=== PATIENT | male | born 1950 | race Caucasian/White ===

== ENCOUNTER → 2017-03-05 | Day surgery (SDC) | payer OTHER ==
[~2017-03-05] MED LIST: ACETYLCYSTEINE 20% 6,000 MG/30 ML ORAL SOLN VIAL ONE; ATOR20TA15 PO; FISHCAP4 PO; PROPOFOL 500 MG/50 ML BTL IV ONE; STERILE WATER FOR INJECTION 20 ML VIAL ONE
--- NOTE | 2017-03-05 14:27 | GIPROC ---
[facility] [address] [facility], [address] EGD PROCEDURE REPORT EXAM DATE: 03/05/2017 PATIENT NAME: Alen Vaca MR #: [id number] BIRTHDATE: 1950 ATTENDING: Scott Santiago MD ORDER #: [id number] HOME HEALTH RN: Bethel Lilly RN STATUS: outpatient INDICATIONS: The patient is a 66 yr old male here for an EGD due to follow up of Santa's esophagus PROCEDURE PERFORMED: EGD w/ ablation MEDICATIONS: None and Per Anesthesia. TOPICAL ANESTHETIC: CONSENT: The patient understands the risks and benefits of the procedure and understands that these risks include, but are not limited to: sedation, allergic reaction, infection, perforation and/or bleeding. Alternative means of evaluation and treatment include, among others: physical exam, x-rays, and/or surgical intervention. The patient elects to proceed with this endoscopic procedure. medical equipment was checked for proper function. Hand hygiene and appropriate measures for infection prevention was taken. After the risks, benefits and alternatives of the procedure were thoroughly explained, Informed consent was verified, confirmed and timeout was successfully executed by the treatment team. The patient was anesthetized with topical anesthesia and the EG-[id number] ([id number]) endoscope was introduced through the mouth and advanced to the second portion of the duodenum. Retroflexed views revealed no abnormalities The gastroscope was then slowly withdrawn and removed. ESOPHAGUS: There was short segment Santa's esophagus found in the lower third of the esophagus. The length of circumferential Santa's was 0cm (Hendricks C0) and the length of Maximal extent of Santa's was 1cm (Hendricks M1). There was no nodular mucosa noted in the Santa's segment. RFA procedure: Given the above findings, the decision was made to treat the Santa's esophagus with endoscopic ablation, using the Halo 90 cap device. The Santa's esophagus tissue was irrigated with Mucomyst (1%) mixed with water. RF ablation of the tongues and of all Santa's tissue was performed. Each area was treated x 2, the ablation zone was cleaned of coagulative debris with the ablation device, irrigation and suction using the endoscope. The area was then treated x 2 again until a chamois colored area was observed at the site of treatment. A total of 5 ablations were performed. The endoscopy was otherwise normal. ADVERSE EVENTS: There were no complications. IMPRESSIONS: 1. There was short segment Santa's esophagus found in the lower third of the esophagus; RF ablation of the tongues and of all Santa's tissue was performed 2. Normal endoscopy otherwise 3. Retroflexed views revealed no abnormalities RECOMMENDATIONS: 1. Continue PPI 2. Follow-up: GI clinic 4 week(s) PATIENT CONDITION: stable DISPOSITION: Home REPEAT EXAM: Return 3 months EGD Scott Santiago MD eSigned: Scott Santiago MD 03/05/2017 2:26 PM cc: Christiano Meraz PATIENT NAME: Alen Vaca MR#: [id number]
== END | disposition home or self-care (01) ==
LOC: ESDC 10:52
PROVIDERS: ATTEND Internal Medicine Gastroenterology
DX: K22.70 Barrett's esophagus without dysplasia (principal)

== ENCOUNTER 2017-12-17 19:04 | Inpatient (IN) ==
[2017-12-17] MEDS ORDERED: HYDROmorphone PF Inj 2 MG/ML Vial IV.PUSH ONE (21:25)
[2017-12-17] MEDS ORDERED: Sod Chloride 0.9% Inj 1,000 ML IV.SIG SCH (21:30)
--- NOTE | 2017-12-17 22:01 | ED ---
HPI General Chief complaint: Pain: Chronic Stated complaint: doc sent/CA pt Time Seen by Provider: 12/17/17 20:53 Source: patient and family Mode of arrival: ambulatory Limitations: no limitations History of Present Illness HPI narrative: Patient is a 66-year-old male that presents for the evaluation of left sided neck pain that started last night. The patient is currently being treated with chemotherapy and radiation for neck cancer. The patient states that he has had neck pain throughout the course of his treatment but the pain that started last night is worse than his usual pain. He currently rates his pain as a 7/10 on a pain scale. He states that the pain is located on the left side of his neck but is radiating to the left side of his head as well. The patient states that he was recently prescribed both Oxycodone and Morphine to help control his pain. He notes that neither of these medications have been able to alleviate his pain. He does not note anything specific that aggregates his pain. The patient denies chest pain, shortness of breath, dizziness, fever, chills, or night sweats. Patient has been experiencing nausea and vomiting that also started yesterday. Related Data Home Medications Medication Instructions Recorded Confirmed amoxicillin 500 mg PO Q6HR 11/28/17 11/28/17 atorvastatin 20 mg PO DAILY 11/28/17 11/28/17 oxycodone 5 mg PO Q4-6H PRN 11/28/17 11/28/17 pantoprazole 40 mg PO DAILY 11/28/17 11/28/17 Allergies Allergy/AdvReac Type Severity Reaction Status Date / Time No Known Allergies Allergy Verified 12/17/17 21:48 Review of Systems ROS: all other systems reviewed are negative [facility] Medical History Medical History Port-A-Cath in place (Acute) Cancer of neck (Acute) Cirrhosis (Acute) Esophagitis (Acute) Hyperlipemia (Acute) Normal colonoscopy (Acute) Surgical History Surgical History Hx of eye surgery (Acute) Social History Social History Substance History: No History of Abuse Second Hand Smoke Exposure: No Smoking Status: Former smoker How Often Do You Have a Drink Containing Alcohol: Never Recent Travel in [facility] within the Last 8 Weeks: No Recent Out of Country Travel within the Last 8 Weeks: No Immunization History Tetanus Immunization: Unsure Hx Influenza Vaccine This Season: Yes Exam Narrative Exam Narrative: GENERAL: Well appearing SKIN: Focused skin assessment warm/dry. HEAD: Atraumatic. Normocephalic. EYES: Pupils equal and round. No scleral icterus. No injection or drainage. ENT: No nasal bleeding or discharge. Mucous membranes pink and moist. Noted masses on the left side of the neck. NECK: Trachea midline. No JVD. CARDIOVASCULAR: Regular rate and rhythm. No murmur appreciated. RESPIRATORY: No accessory muscle use. Clear to auscultation. Breath sounds equal bilaterally. GASTROINTESTINAL: Abdomen soft, non-tender, nondistended. Hepatic and splenic margins not palpable. MUSCULOSKELETAL: No obvious deformities. No clubbing. No cyanosis. No edema. NEUROLOGICAL: Awake and alert. No obvious cranial nerve deficits. Motor grossly within normal limits. Normal speech. PSYCHIATRIC: Appropriate mood and affect; insight and judgment normal. Course Initial Documented Vital Signs Temperature 98.6 F 12/17/17 19:29 Pulse Rate 64 12/17/17 19:29 Respiratory Rate 18 12/17/17 19:29 Blood Pressure 106/58 L 12/17/17 19:29 Pulse Oximetry 95 12/17/17 19:29 Last Documented Vital Signs Temperature 98.6 F 12/17/17 19:29 Pulse Rate 60 12/17/17 21:09 Respiratory Rate 17 12/17/17 21:09 Blood Pressure 161/65 H 12/17/17 21:09 Pulse Oximetry 97 12/17/17 21:09 Medical Decision Making [facility] Narrative Medical decision making narrative: 66-year-old male the presents to the ED for evaluation of cancer pain. Patient was properly examined and was found to have signs and symptoms consistent with what appears to be cancer pain. Patient already taken morphine and oxycodone with no relief. Patient also throwing up and not eating anything for the past 2 days. Labs order. Patient start IV fluids and pain medications. Labs showed no sign of acute disease. Patient was reassessed and still in some discomfort. Case was discussed my attending Dr. Orellana who recommends admission. Case discussed with Dr. Guillaume who agrees to up to admission. Family agrees with plan. Medical Screen Exam Complete: Yes Emergency Medical Condition: Yes Differential Diagnosis Differential Diagnosis: Chronic pain versus cancer pain versus intractable pain versus dehydration Medical Records Medical records reviewed: Yes I reviewed the patient's medical records. Lab Data Lab results reviewed: Yes I reviewed the patient's lab results. Result diagrams: 12/17/17 21:15 18 21:15 Lab Results 12/17/17 12/17/17 Range/Units 21:15 21:15 WBC 6.0 (4.0-11.0) th/mm3 RBC 3.80 L (4.50-5.90) mil/mm3 Hgb 12.2 L (13.0-17.0) gm/dL Hct 34.7 L (39.0-51.0) % MCV 91.3 (80.0-100.0) fL MCH 32.1 (27.0-34.0) pg MCHC 35.1 (32.0-36.0) % RDW 13.1 (11.6-17.2) % Plt Count 242 (150-450) th/mm3 MPV 8.5 (7.0-11.0) fL Neut % (Auto) 74.3 H (16.0-70.0) % Lymph % (Auto) 14.2 (9.0-44.0) % [place] % (Auto) 9.3 H (0.0-8.0) % Eos % (Auto) 1.8 (0.0-4.0) % Baso % (Auto) 0.4 (0.0-2.0) % Neut # (Auto) 4.4 (1.8-7.7) th/mm3 Lymph # (Auto) 0.8 L (1.0-4.8) th/mm3 [place] # (Auto) 0.6 (0.0-0.9) th/mm3 Eos # (Auto) 0.1 (0.0-0.4) th/mm3 Baso # (Auto) 0.0 (0.0-0.2) th/mm3 WBC Differential . Differential Comment Auto diff final Sodium 138 (136-145) meq/L Potassium 4.2 (3.5-5.1) meq/L Chloride 100 (98-107) meq/L Carbon Dioxide 29.6 (21.0-32.0) meq/L Anion Gap 8 (5-15) meq/L BUN 15 (7-18) mg/dL Creatinine 0.73 (0.60-1.30) mg/dL Estimated GFR Greater than 89 (>89) mL/min Random Glucose 94 (74-106) mg/dL Calcium 9.2 (8.5-10.1) mg/dL Total Bilirubin 0.6 (0.2-1.0) mg/dL AST 22 (15-37) U/L ALT 23 (12-78) U/L Alkaline Phosphatase 84 (45-117) U/L Total Protein 7.1 (6.4-8.2) g/dL Albumin 3.8 (3.4-5.0) g/dL Discharge Plan Discharge Disposition Patient Disposition: 30 Still Patient Discharge Details Diagnosis: Intractable pain, Cancer of neck Physicians Team ED Provider: Mary Orellana ED Midlevel Provider: Joni Contreras Primary Care Provider: Iliana White Rxs /Orders / Referrals /Forms Prescriptions: No Action atorvastatin 20 mg Tablet 20 mg PO DAILY RF: 0 amoxicillin 500 mg Tablet 500 mg PO Q6HR RF: 0 oxycodone 5 mg Capsule 5 mg PO Q4-6H PRN (Reason: Pain) RF: 0 pantoprazole [address] For Susp In Packet 40 mg PO DAILY RF: 0 Discharge Interventions Interventions: Vital Signs Last Done: 12/17/17 21:09 Status ED Status: With Doctor
[2017-12-17 22:40] LABS: Albumin 3.8 g/dL (3.4-5.0); Anion Gap 8 meq/L (5-15); Aspartate Aminotransferase 22 U/L (15-37); Blood Urea Nitrogen 15 mg/dL (7-18); Calcium 9.2 mg/dL (8.5-10.1); Carbon Dioxide 29.6 meq/L (21.0-32.0); Chloride 100 meq/L (98-107); Glomerular Filtration Rate Greater Than 89 mL/min (>89); Glucose,Random 94 mg/dL (74-106); Potassium 4.2 meq/L (3.5-5.1); Sodium 138 meq/L (136-145)
[2017-12-17 22:41] LABS: Alanine Aminotransferase 23 U/L (12-78)
[2017-12-17 22:43] LABS: Alkaline Phosphatase 84 U/L (45-117); Baso % (Auto) 0.4 % (0.0-2.0); Eos # (Auto) 0.1 th/mm3 (0.0-0.4); Eos % (Auto) 1.8 % (0.0-4.0); Hematocrit 34.7 % (39.0-51.0); Hemoglobin 12.2 gm/dL (13.0-17.0); Lymph # (Auto) 0.8 th/mm3 (1.0-4.8); Lymph % (Auto) 14.2 % (9.0-44.0); Mean Corpuscular HGB Conc 35.1 % (32.0-36.0); Mean Corpuscular Hemoglobin 32.1 pg (27.0-34.0); Mean Corpuscular Volume 91.3 fL (80.0-100.0); Mean Platelet Volume 8.5 fL (7.0-11.0); Mono # (Auto) 0.6 th/mm3 (0.0-0.9); Mono % (Auto) 9.3 % (0.0-8.0); Neut # (Auto) 4.4 th/mm3 (1.8-7.7); Neut % (Auto) 74.3 % (16.0-70.0); Platelet Count 242 th/mm3 (150-450); Red Cell Distribution Width 13.1 % (11.6-17.2); Total Protein 7.1 g/dL (6.4-8.2)
[2017-12-18] MEDS: HYDROmorphone PF Inj 2 MG/ML Vial IV.PUSH PRN ×5 (01:00→23:30)
[2017-12-18] MEDS ORDERED: Bisacodyl 10 MG Supp RECTAL PRN (02:49)
[2017-12-18] MEDS ORDERED: Acetaminophen 325 MG Tablet PO PRN (02:49)
--- NOTE | 2017-12-18 03:05 | P.HP ---
History of Present Illness Service: [facility] Primary Care Physician: Iliana White MD History of Present Illness: 66-year-old male with a past medical history significant for neck cancer and hyperlipidemia presents the emergency department for evaluation of intractable neck pain. The patient was sent in by his oncologist, Dr. Argueta for management of neck pain not relieved with oral analgesics. Patient is currently being treated with chemotherapy and radiation for neck cancer. He states that he has had neck pain throughout the course of his treatment with the pain that started last night is worse than his usual pain and he is unable to sleep. The pain is located on the left side of his neck but is radiating to the left side of his head. He denies chest pain or shortness of breath. No nausea/vomiting/diarrhea. No abdominal pain. No lateralizing signs/symptoms. No fevers/chills. Inpatient Certification: I certify that the inpatient services were ordered in accordance with Medicare regulations governing the order. This includes certification that hospital inpatient services are reasonable and necessary and in the case of services not specified as inpatient-only under 42 CFR 419.22(n), that they are appropriately provided as inpatient services in accordance to with the 2-midnight benchmark under 43 CFR 412.3(e) Estimated Total Length of Stay (Days): 2 Plans for Post Hospital Care: Not yet determined Review of Systems All other systems reviewed negative except as stated in HPI [facility] - History History Provided By: Patient - Medical History Medical History: Medical History (Last Reviewed 12/18/17 @ 02:58 by Mary Guillaume MD) Port-A-Cath in place Cancer of neck Cirrhosis Esophagitis Hyperlipemia Normal colonoscopy - Surgical History Surgical History: Surgical History (Last Reviewed 12/18/17 @ 02:58 by Mary Guillaume MD) Hx of eye surgery - Family History Family History: Family History (Last Updated 12/18/17 @ 02:58 by Mary Guillaume MD) Other Family history normal - Tobacco History Second Hand Smoke Exposure: No Smoking Status: Former smoker - Alcohol History How Often Do You Have a Drink Containing Alcohol: Never - Substance Use History Substance History: No History of Abuse - Travel History Recent Travel in the [place] Within the Last 8 Weeks: No Recent Travel Out of the Country Within the Last 8 Weeks: No - Immunization History Tetanus Immunization: Unsure Hx Influenza Vaccine This Season: Yes Medications and Allergies Active Medications: Active Medications Acetaminophen (Tylenol) 650 mg PO Q4H PRN PRN Reason: Temp > 100.4 Al Hydroxide/Mg Hydroxide (Milk Of Magnesia Liq) 30 ml PO Q12H PRN PRN Reason: Mild Constipation Aspirin (Ecotrin) 81 mg PO DAILY NO Atorvastatin Calcium (Lipitor) 20 mg PO DAILY [facility] Bisacodyl (Dulcolax Supp) 10 mg RECTAL DAILY PRN PRN Reason: SEVERE CONSITIPATION Enoxaparin Sodium (Lovenox Inj) 40 mg SQ Q24H NO Hydromorphone HCl (Dilaudid Pf Inj) 2 mg IV.PUSH Q4H PRN PRN Reason: breakthrough pain Sodium Chloride (Ns Inj) 1,000 mls @ 0 mls/hr IV.SIG BOLUS NO Last Infusion: 12/17/17 22:45 Dose: Infused Lactulose (Lactulose Liq) 30 ml PO DAILY PRN PRN Reason: SEVERE CONSITIPATION Morphine Sulfate (Oramorph Sr) 15 mg PO Q12H NO Ondansetron HCl (Zofran Inj) 4 mg IV.PUSH Q6H PRN PRN Reason: NAUSEA OR VOMITING Oxycodone HCl (Roxicodone) 5 mg PO Q4HR PRN PRN Reason: Pain Pantoprazole Sodium (Protonix) 40 mg PO DAILY [facility] Senna/Docusate Sodium (Tati-Colace) 1 tab PO BID [facility] Sennosides (Senokot) 17.2 mg PO Q12H PRN PRN Reason: Moderate Constipation Allergies Allergy/AdvReac Type Severity Reaction Status Date / Time No Known Allergies Allergy Verified 12/17/17 21:48 Home Medications Medication Instructions Recorded Confirmed Type atorvastatin 20 mg PO DAILY 11/28/17 12/17/17 History aspirin [Aspirin Low Dose] 81 mg PO DAILY 12/17/17 12/17/17 History morphine 15 mg PO Q12H 12/17/17 12/17/17 History ondansetron HCl 8 mg PO Q6HR PRN 12/17/17 12/17/17 History oxycodone 5 mg PO Q4HR PRN 12/17/17 12/17/17 History pantoprazole 40 mg PO DAILY 12/17/17 12/17/17 History prochlorperazine maleate 10 mg PO Q6HR PRN 12/17/17 12/17/17 History Exam Vital signs: Vital Signs 12/17/17 19:29 12/17/17 21:09 12/18/17 00:57 Temperature 98.6 F Pulse Rate 64 60 55 L Respiratory Rate 18 17 18 Blood Pressure 106/58 L 161/65 H 120/65 Pulse Oximetry 95 97 96 Intake & Output 12/17/17 12/17/17 12/18/17 06:59 18:59 06:59 Intake Total 1000 / 1000 Balance 1000 / 1000 Weight 81 kg Intake: IV 1000 / 1000 NS Inj 1,000 ML @ Wide Open IV. 1000 / 1000 SIG BOLUS NO Rx#:[id number] Narrative: Gen.: No acute distress Head: Normocephalic. Atraumatic. EENT: Pupils equal round and reactive to light. Nose without drainage. Airway intact. Throat without injection. Cardiovascular: Regular rate and rhythm. No murmurs, rubs or gallops. Respiratory: Lungs clear to auscultation bilaterally. No wheezes or rhonchi. Abdomen: Soft, nontender, nondistended. No peritoneal signs. Musculoskeletal: No gross deformities. No edema. Skin: No obvious rashes or erythema. Neuro: Sensory and motor grossly intact. Cranial nerves II through XII grossly intact. Results - Labs CBC & Chem 7: 12/17/17 21:15 12/17/17 21:15 Labs: Laboratory Results - last 24 hr 12/17/17 12/17/17 21:15 21:15 WBC 6.0 RBC 3.80 L Hgb 12.2 L Hct 34.7 L MCV 91.3 MCH 32.1 MCHC 35.1 RDW 13.1 Plt Count 242 MPV 8.5 Neut % (Auto) 74.3 H Lymph % (Auto) 14.2 [place] % (Auto) 9.3 H Eos % (Auto) 1.8 Baso % (Auto) 0.4 Neut # (Auto) 4.4 Lymph # (Auto) 0.8 L [place] # (Auto) 0.6 Eos # (Auto) 0.1 Baso # (Auto) 0.0 WBC Differential . Differential Comment Auto diff final Sodium 138 Potassium 4.2 Chloride 100 Carbon Dioxide 29.6 Anion Gap 8 BUN 15 Creatinine 0.73 Estimated GFR Greater than 89 Random Glucose 94 Calcium 9.2 Total Bilirubin 0.6 AST 22 ALT 23 Alkaline Phosphatase 84 Total Protein 7.1 Albumin 3.8 Caprini VTE Risk Assessment Caprini VTE Risk Assessment: Moderate/High Risk (score >= 2) Caprini Risk Assessment Model: Point Value = 1 Point Value = 2 Point Value = 3 Point Value = 5 Age 41-60 Minor surgery BMI > 25 kg/m2 Swollen legs Varicose veins or History of unexplained or recurrent spontaneous Oral contraceptives or hormone replacement Sepsis (< 1 month) Serious lung disease, including pneumonia (< 1 month) Abnormal pulmonary function Acute myocardial infarction Congestive heart failure (< 1 month) History of inflammatory bowel disease Medical patient at bed rest Age 61-74 Arthroscopic surgery Major open surgery (> 45 min) Laparoscopic surgery (> 45 min) Malignancy Confined to bed (> 72 hours) Immobilizing plaster cast Central venous access Age >= 75 History of VTE Family history of VTE Factor V Leiden Prothrombin [id number] Lupus anticoagulant Anticardiolipin antibodies Elevated serum homocysteine Heparin-induced thrombocytopenia Other congenital or acquired thrombophilia Stroke (< 1 month) Elective arthroplasty Hip, pelvis, or leg fracture Acute spinal cord injury (< 1 month) Prophylaxis Regimen: Total Risk Factor Score Risk Level Prophylaxis Regimen 0-1 Low Early ambulation 2 Moderate Order ONE of the following: *Sequential Compression Device (SCD) *Heparin 5000 units SQ BID 3-4 Higher Order ONE of the following medications: *Heparin 5000 units SQ TID *Enoxaparin/Lovenox 40 mg SQ daily (WT < 150 kg, CrCl > 30 mL/min) *Enoxaparin/Lovenox 30 mg SQ daily (WT < 150 kg, CrCl > 10-29 mL/min) *Enoxaparin/Lovenox 30 mg SQ BID (WT < 150 kg, CrCl > 30 mL/min) AND/OR *Sequential Compression Device (SCD) 5 or more Highest Order ONE of the following medications: *Heparin 5000 units SQ TID (Preferred with Epidurals) *Enoxaparin/Lovenox 40 mg SQ daily (WT < 150 kg, CrCl > 30 mL/min) *Enoxaparin/Lovenox 30 mg SQ daily (WT < 150 kg, CrCl > 10-29 mL/min) *Enoxaparin/Lovenox 30 mg SQ BID (WT < 150 kg, CrCl > 30 mL/min) AND *Sequential Compression Device (SCD) Assessment and Plan - Plan Assessment/plan: 1. Intractable pain Patient with known history of neck cancer Treatment with p.o. morphine and oxycodone have not alleviated the patient's pain Continue home oral analgesics IV Dilaudid for breakthrough pain 2. Neck cancer Patient's oncologist, Dr. Argueta consulted, appreciate assistance Patient currently undergoing radiation therapy with Dr. Mathews. Has appointment at 1130 today. Will attempt to arrange transportation to radiation oncology so that patient can continue his therapy. 3. Hyperlipidemia Continue home statin FEN Daily diet Electrolytes: Monitor and replete as needed Lovenox
[2017-12-18] MEDS ORDERED: Morphine Sulfate 15 MG SR Tablet PO SCH (04:00)
[2017-12-18] MEDS: Enoxaparin Inj 40 MG/0.4 ML Syringe SQ SCH (04:00)
[2017-12-18] MEDS: Senna/Docusate Sodium 8.6/50 MG Tablet PO SCH ×2 (08:47→20:01)
--- NOTE | 2017-12-18 12:50 | P.PNADD ---
Addendum to Inpatient Note Additional information: Patient seen/examined. Admitted due to head and neck cancer, intractable pain, nausea, vomiting. Will start patient on Dexamethasone in an effort to help N/V. Patient is trying to sleep and feels somewhat better.
[2017-12-18] MEDS: Morphine Sulfate 15 MG SR Tablet PO SCH ×2 (14:20→23:26)
--- NOTE | 2017-12-18 20:48 | MB ---
cc: Telma Argueta MD DATE: 12/18/2017 CHIEF COMPLAINT: 1. Head and neck cancer. 2. Intractable pain. 3. Nausea and vomiting. 4. Decreased oral intake. HISTORY OF PRESENT ILLNESS: The patient is a 66-year-old gentleman with a history of hyperlipidemia, acid reflux, tobacco abuse, with now newly diagnosed head and neck cancer, currently undergoing treatment with concurrent chemotherapy and radiation therapy. This was started on 12/08/2017. He received his second dose of cisplatin on 12/15/2017. His cancer is in his left supraglottic region at the level of the hyoid with thickening of the left epiglottis and aryepiglottic folds. He also has a large johanna mass in the lateral compartment of the left neck, which appears to invade the sternocleidomastoid muscle and extends to the left pharyngeal wall. He was previously on an as-needed oxycodone. Since initiation of therapy, his pain has greatly increased. He was started on long-acting morphine in addition to oxycodone and he was unable to get good control of his pain. His pain was constant, at least an 8 up to a 10 at times. Since in the hospital, he has been on long-acting morphine, oxycodone, as well as as-needed IV Dilaudid. He reports that his pain is not controlled and unfortunately he is having side effects from pain medications to include further nausea, vomiting, dizziness and somnolence. PAST MEDICAL HISTORY: 1. Hyperlipidemia. 2. Acid reflux. 3. Tobacco abuse. PAST SURGICAL HISTORY: 1. Colonoscopy in 2018. 2. Biopsy of neck. ALLERGIES: NO KNOWN DRUG ALLERGIES. HOME MEDICATIONS: 1. Oxycodone. 2. Protonix. 3. Atorvastatin. 4. Aspirin. FAMILY HISTORY: Cirrhosis in his father, head and neck cancer in his brother. SOCIAL HISTORY: He has a history of tobacco abuse, daily alcohol use. He has a good support system with his family. REVIEW OF SYSTEMS: As above in the HPI, all others negative. PHYSICAL EXAMINATION: VITAL SIGNS: Temperature 99.3, pulse 63, respiratory rate 18, blood pressure 168/78. GENERAL: Well-developed, well-nourished man initially sleeping and then appearing to be in distress secondary to pain in his neck. Head is normocephalic. NECK: With palpable mass in left neck, which is known head and neck cancer. CARDIOVASCULAR: Regular rate and rhythm. RESPIRATORY: Lungs are clear to auscultation bilaterally. ABDOMEN: Soft, nontender, nondistended. Bowel sounds present. EXTREMITIES: No edema. NEUROLOGIC: Grossly nonfocal. PSYCHIATRIC: Appropriate mood and affect. ASSESSMENT AND PLAN: 1. Head and neck cancer. We will continue with treatment with concurrent chemotherapy and radiation therapy while inpatient to stay on schedule as much as possible. 2. Intractable pain. He is currently on oral morphine b.i.d. morphine sulfate, Oramorph 15 mg every 8 hours, oxycodone every 4 hours as needed and IV Dilaudid. Unfortunately, he is having side effects of pain medication therapy and no control of his pain. We will consult palliative care for assistance with pain management. We will also repeat CT scan of the head and neck area to ensure that there is not any anatomical abnormality that would be contributing to his pain. Inpatient oncology service will continue to follow. Telma Argueta MD NORI/ct , 07:18 PM , 07:25 PM
[2017-12-19 05:19] LABS: Baso % (Auto) 0.2 % (0.0-2.0); Eos % (Auto) 0.1 % (0.0-4.0); Hematocrit 33.9 % (39.0-51.0); Hemoglobin 11.9 gm/dL (13.0-17.0); Lymph # (Auto) 0.3 th/mm3 (1.0-4.8); Lymph % (Auto) 4.5 % (9.0-44.0); Mean Corpuscular HGB Conc 35.1 % (32.0-36.0); Mean Corpuscular Hemoglobin 31.9 pg (27.0-34.0); Mean Corpuscular Volume 90.8 fL (80.0-100.0); Mean Platelet Volume 7.9 fL (7.0-11.0); Mono # (Auto) 0.2 th/mm3 (0.0-0.9); Mono % (Auto) 2.7 % (0.0-8.0); Neut # (Auto) 5.2 th/mm3 (1.8-7.7); Neut % (Auto) 92.5 % (16.0-70.0); Platelet Count 226 th/mm3 (150-450); Red Blood Count 3.73 mil/mm3 (4.50-5.90); Red Cell Distribution Width 12.7 % (11.6-17.2); White Blood Count 5.6 th/mm3 (4.0-11.0)
[2017-12-19 05:31] LABS: Anion Gap 8 meq/L (5-15); Blood Urea Nitrogen 19 mg/dL (7-18); Calcium 9.3 mg/dL (8.5-10.1); Carbon Dioxide 30.5 meq/L (21.0-32.0); Chloride 101 meq/L (98-107); Glomerular Filtration Rate Greater Than 89 mL/min (>89); Glucose,Random 97 mg/dL (74-106); Potassium 4.9 meq/L (3.5-5.1); Sodium 139 meq/L (136-145)
[2017-12-19] MEDS: Enoxaparin Inj 40 MG/0.4 ML Syringe SQ SCH (06:32)
[2017-12-19] MEDS: Morphine Sulfate 15 MG SR Tablet PO SCH ×3 (09:46→20:18)
[2017-12-19] MEDS: Senna/Docusate Sodium 8.6/50 MG Tablet PO SCH ×2 (09:46→20:25)
--- NOTE | 2017-12-19 10:16 | P.CONPAL ---
Consult Service: Palliative Care Requesting Physician: Telma Argueta Reason for Consult: a. To assist with evaluation and management of symptoms including: pain, nausea b. To assist medical decision maker(s) with: better understanding of current medical conditions; weighing benefits/burdens of medical treatment options; making medical treatment decisions. Primary Care Provider: Iliana White MD History of Present Illness History of Present Illness: This 66-year-old patient presented to the ED on 12/17/17 with complaints of left- sided neck pain onset the night before. He has known history of neck cancer, on current treatment chemotherapy, radiation. He reported he had had neck pain throughout the treatment course but the P onset the night before was worse than usual. Pain radiates to the left side of his head. He reported recently prescribed oxycodone, morphine those were alleviating the pain. He denied chest pain, shortness of breath, dizziness, fever ,chills. He also reported nausea and vomiting onset the day prior. * Exam consistent with cancer pain. Started on IV fluids, IV pain medication. WBC 6, hemoglobin 12.2, hematocrit 34.7. Platelets 242. Chemistry unremarkable. Patient was admitted for further evaluation and management of pain, n/v. started on dexamethasone for n/v. Oncology known to the patient was consulted. Due for outpt XRT w Dr Mathews day of presentation-- arranged for XRT during admission. * Oncology: Noted the patient newly diagnosed with head and neck cancer. This cancer was first noted as a lump on the left side of his necks which had waxed and waned in size. CT findings 10/28/noted mass with associated lymphadenopathy. 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 He is staged with stage Fly T2N2A disease] - First saw Dr. Argueta 11/03/17. Cancer is in the left supraglottic region at the level of the hyoid with thickening of the left epiglottis and epiglottic folds also with large mass in the lateral compartment of the left neck which appears to invade sternocleidomastoid muscle and extends to left pharyngeal wall. Currently undergoing treatment with concurrent chemotherapy, XRT;goal of treatment of cure. Port placed 11/28/17 - Chemo was started 12/08/17. Second dose of cisplatin was 12/15/17. Oncology recommends continue with current treatment plan including concurrent chemotherapy, XRT try to stay on the schedule as much as possible while inpatient. Patient recently started on oral morphine long-acting 15 mg every 12 hr, additional IV Dilaudid 2mg Q 4 hr here in hospital. Morphine long acting changed to Q [address] scan of head and neck ordered 12/18 to ascertain no additional anatomical abnormality that could be contributing. * Palliative care consulted to assist with management of pain. 24 PRNS recall: --zofran 4mg x 4 12/18 --oxycodone PO 5mg x3 12/18/17 --hydromorphone 2mg x 5 12/18/17 Pt seen in room, sister Anisha present. He is a& o x3 , though forgetful at times. Pleasant, cooperative. indicates overall feeling much better today in terms of nausea, pain. Still with "little" pain, 2/10, indicates is tolerable, not distressing. No nausea, indicates episode earlier. No dyspnea. No other aches/pains. Fair appetite. Function/Cognitive Trajectory: Lives at home independent with ADLs. No cognitive deficits Review of Systems Constitutional: Denies body ache(s), Denies chills, Denies fever(s), Denies headache(s) Eyes: Denies change in vision Ears, Nose, Mouth, and Throat: Denies pain with swallowing, Denies sore throat Cardiovascular: Denies chest pain, Denies leg swelling, Denies shortness of breath Respiratory: Denies cough, Denies shortness of breath Gastrointestinal: Reports difficulty swallowing, Reports nausea, Reports vomiting, Denies abdominal pain, Denies constipation Genitourinary: Denies difficulty urinating, Denies painful urination Musculoskeletal: Denies back pain, Denies joint pain Skin/Breast: Denies rash Psychiatric: Denies anxiety PMFSH - History History Provided By: Patient, Family Member - Medical History Medical History: Medical History (Last Updated 12/19/17 @ 10:13 by EMELYN Juarez) Barretts esophagus Port-A-Cath in place Cancer of neck Cirrhosis Esophagitis Hyperlipemia Normal colonoscopy - Surgical History Surgical History: Surgical History (Last Reviewed 12/18/17 @ 02:58 by Mary Guillaume MD) Hx of eye surgery - Family History Family History: Family History (Last Updated 12/19/17 @ 10:01 by EMELYN Juarez) Father Cirrhosis Sister Colon cancer Mother COPD (chronic obstructive pulmonary disease) Brother HPV (human papilloma virus) infection of vocal cords Other Family history normal - Tobacco History Second Hand Smoke Exposure: No Tobacco Use In Past 30 Days: No Smoking Status: Former smoker Tobacco Type: Cigarettes Packs Per Day: 1.5 Years Smoked: 40 - Alcohol History How Often Do You Have a Drink Containing Alcohol: 4 or more times a week (4 beers a day) - Substance Use History Substance History: No History of Abuse - Travel History Recent Travel in the [facility] Within the Last 8 Weeks: No Recent Travel Out of the Country Within the Last 8 Weeks: No - Immunization History Tetanus Immunization: Unsure Hx Influenza Vaccine This Season: Yes Medications and Allergies Active Medications: Active Medications Acetaminophen (Tylenol) 650 mg PO Q4H PRN PRN Reason: Temp > 100.4 Al Hydroxide/Mg Hydroxide (Milk Of Magnesia Liq) 30 ml PO Q12H PRN PRN Reason: Mild Constipation Aspirin (Ecotrin) 81 mg PO DAILY [facility] Last Admin: 12/18/17 08:47 Dose: 81 mg Atorvastatin Calcium (Lipitor) 20 mg PO DAILY [facility] Last Admin: 12/18/17 08:47 Dose: 20 mg Bisacodyl (Dulcolax Supp) 10 mg RECTAL DAILY PRN PRN Reason: SEVERE CONSITIPATION Dexamethasone (Decadron) 4 mg PO Q8HR [facility] Last Admin: 12/18/17 23:26 Dose: 4 mg Enoxaparin Sodium (Lovenox Inj) 40 mg SQ Q24H [facility] Last Admin: 12/19/17 06:32 Dose: Not Given Hydromorphone HCl (Dilaudid Pf Inj) 2 mg IV.PUSH Q4H PRN PRN Reason: breakthrough pain Last Admin: 12/18/17 23:30 Dose: 2 mg Sodium Chloride (Ns Inj) 1,000 mls @ 0 mls/hr IV.SIG BOLUS [facility] Last Infusion: 12/17/17 22:45 Dose: Infused Lactulose (Lactulose Liq) 30 ml PO DAILY PRN PRN Reason: SEVERE CONSITIPATION Morphine Sulfate (Oramorph Sr) 15 mg PO Q8HR [facility] Last Admin: 12/18/17 23:26 Dose: 15 mg Ondansetron HCl (Zofran Inj) 4 mg IV.PUSH Q6H PRN PRN Reason: NAUSEA OR VOMITING Last Admin: 12/18/17 19:53 Dose: 4 mg Oxycodone HCl (Roxicodone) 5 mg PO Q4HR PRN PRN Reason: PAIN 1-10 Last Admin: 12/18/17 19:54 Dose: 5 mg Pantoprazole Sodium (Protonix) 40 mg PO DAILY [facility] Last Admin: 12/18/17 08:47 Dose: 40 mg Senna/Docusate Sodium (Tati-Colace) 1 tab PO BID [facility] Last Admin: 12/18/17 20:01 Dose: 1 tab Sennosides (Senokot) 17.2 mg PO Q12H PRN PRN Reason: Moderate Constipation Allergies Allergy/AdvReac Type Severity Reaction Status Date / Time No Known Allergies Allergy Verified 12/17/17 21:48 Home Medications Medication Instructions Recorded Confirmed Type atorvastatin 20 mg PO DAILY 11/28/17 12/17/17 History aspirin [Aspirin Low Dose] 81 mg PO DAILY 12/17/17 12/17/17 History morphine 15 mg PO Q12H 12/17/17 12/17/17 History ondansetron HCl 8 mg PO Q6HR PRN 12/17/17 12/17/17 History oxycodone 5 mg PO Q4HR PRN 12/17/17 12/17/17 History pantoprazole 40 mg PO DAILY 12/17/17 12/17/17 History prochlorperazine maleate 10 mg PO Q6HR PRN 12/17/17 12/17/17 History Advance Directives Healthcare Surrogate: Yes (Sister Sailaja Gamboa) Ethical and Legal Issues: Patient currently capacitated and able to make his own decisions. He indicates that his sister Sailaja Gamboa is his designated healthcare surrogate. We obtain copies of these documents and sent copy to medical records Physical Exam Vital Signs: Vital Signs - 24 hr 12/18/17 12:29 12/18/17 15:30 12/18/17 19:47 Temperature 97.3 F L 99.3 F 99.3 F Pulse Rate 58 L 63 59 L Respiratory Rate 18 18 20 Blood Pressure 149/58 H 168/78 H 139/62 Pulse Oximetry 91 L 94 L 92 L 12/19/17 00:00 12/19/17 04:00 12/19/17 09:19 Temperature 97.8 F 98.7 F Pulse Rate 63 62 71 Respiratory Rate 20 18 Blood Pressure 143/63 H 139/65 155/72 H Pulse Oximetry 94 L 96 I&O: Intake & Output 12/17/17 12/18/17 12/19/17 12/20/17 06:59 06:59 06:59 06:59 Intake Total 1320 / 1320 480 / 480 Output Total 300 / 300 Balance 1020 / 1020 480 / 480 Weight 80.6 kg 79.6 kg Physical Exam: CONSTITUTIONAL/GENERAL: This is an adequately nourished patient, in no apparent distress. TUBES/LINES/DRAINS: Port access right chest. SKIN: No jaundice, rashes, or lesions. No wounds seen anteriorly. Skin warm and dry. HEAD: Atraumatic. Normocephalic. EYES: Pupils equal and round and reactive. Extraocular motions intact. No scleral icterus. No injection or drainage. Fundi not examined. ENT: Hearing grossly normal. Nose without bleeding or purulent drainage. Edentulous upper.+ Slight erythema, fullness/bulging left oropharynx. No thrush or mucositis NECK: Trachea midline. Supple, nontender. Palpable mass along left neck/jawline CARDIOVASCULAR: Regular rate and rhythm without murmur. No JVD. Peripheral pulses symmetric. RESPIRATORY/CHEST: Symmetric, unlabored respirations. On room air clear to auscultation. Breath sounds equal bilaterally. GASTROINTESTINAL: Abdomen soft, non-tender, nondistended. No hepato-splenomegaly , or palpable masses. No guarding. Bowel sounds present. GENITOURINARY: Without palpable bladder distension. MUSCULOSKELETAL: Extremities without clubbing, cyanosis, or edema. No joint tenderness or effusion noted. NEUROLOGICAL: Awake and alert. Oriented 3 though forgetful at times. Cooperative and talkative. Moves all 4 extremities well. PSYCHIATRIC: No obvious anxiety/depression. no apparent hallucinations or other psychotic thought process. Diagnostic Tests Laboratory: Laboratory Results - last 72 hr 12/17/17 12/17/17 12/19/17 21:15 21:15 05:00 WBC 6.0 5.6 RBC 3.80 L 3.73 L Hgb 12.2 L 11.9 L Hct 34.7 L 33.9 L MCV 91.3 90.8 MCH 32.1 31.9 MCHC 35.1 35.1 RDW 13.1 12.7 Plt Count 242 226 MPV 8.5 7.9 Neut % (Auto) 74.3 H 92.5 H Lymph % (Auto) 14.2 4.5 L [place] % (Auto) 9.3 H 2.7 Eos % (Auto) 1.8 0.1 Baso % (Auto) 0.4 0.2 Neut # (Auto) 4.4 5.2 Lymph # (Auto) 0.8 L 0.3 L [place] # (Auto) 0.6 0.2 Eos # (Auto) 0.1 0.0 Baso # (Auto) 0.0 0.0 WBC Differential . . Differential Comment Auto diff final Auto diff final Sodium 138 Potassium 4.2 Chloride 100 Carbon Dioxide 29.6 Anion Gap 8 BUN 15 Creatinine 0.73 Estimated GFR Greater than 89 Random Glucose 94 Calcium 9.2 Total Bilirubin 0.6 AST 22 ALT 23 Alkaline Phosphatase 84 Total Protein 7.1 Albumin 3.8 12/19/17 05:00 WBC RBC Hgb Hct MCV MCH MCHC RDW Plt Count MPV Neut % (Auto) Lymph % (Auto) [place] % (Auto) Eos % (Auto) Baso % (Auto) Neut # (Auto) Lymph # (Auto) [place] # (Auto) Eos # (Auto) Baso # (Auto) WBC Differential Differential Comment Sodium 139 Potassium 4.9 Chloride 101 Carbon Dioxide 30.5 Anion Gap 8 BUN 19 H Creatinine 0.66 Estimated GFR Greater than 89 Random Glucose 97 Calcium 9.3 Total Bilirubin AST ALT Alkaline Phosphatase Total Protein Albumin Result Diagrams: 12/19/17 05:00 12/19/17 05:00 Patient/Family Conference Family Conference Time: 40 Family Conference Location: Bedside Issues Discussed: Met with patient, his sister Anisha at bedside. Discussion included the following: * Palliative care role, purpose, approach * Additional medical, psychosocial, and spiritual history * Patients general health, functional status, and cognitive changes in the months leading up to the current hospitalization * Patient/family understanding of the current medical problems; review of oncology history * Review of underlying pain syndrome medications on thus far, current treatments and options * Patient/family understanding of prognosis * Patients goals of care as best understood from advance directives and/or conversations and/or values * Current medical treatment options and benefits/burdens of those options * Advanced directives/healthcare surrogate * CODE STATUS requests full code * Questions answered to the best of my ability * Palliative care contact information provided Patient appears to have good understanding of underlying disease process and current treatments in place. He is hopeful to continue with treatment and maintain his health in order to cure his malignancy. He had significant increase in pain this week. He is hopeful to get a good regimen in place that will control the pain. I did explore with him extensively that the disease process will continue to change and with it pain requirements and pain level will likely change and what regimen works 1 week may not work the next and he will likely require continued adjustments up or down going forward. He also voices some concern about "addiction". Review with him that his body will potentially develop a tolerance/dependence on opiates however as the disease process improves and pain levels go down he should be able to be weaned off of the opiates in the future. He is in agreement to continue with [id number] scheduled long-acting morphine with use of prns. Further adjustments pending requirements. He indicates today pain is much better controlled his level is 2. Assessment and Plan - Disease Oriented Problem List (1) Intractable pain (2) Squamous cell carcinoma of head and neck (3) [place] esophagus (4) Cirrhosis - Symptom Scale (1) Intractable pain 0-10 Scale: 2 (2) Nausea 0-10 Scale: Unable to quantify Pertinent Non-Medical Issues: Psychosocial: Retired, formerly worked in the construction industry. Lives alone locally. Well supported by 5 siblings most of whom live out of the area they were taking turns visiting and supporting him. Spiritual: Mandaeism, does not desire salvage engineer visit at this time. Legal:Patient is currently capacitated and able to make his own decisions, he indicates his sister Anjali Gamboa is his designated healthcare surrogate should he become incapacitated. His other sister Anisha who is present today emailed me the copy of this document, we have scanned this to medical records Ethical issues impacting care: No ethical issues identified. Important Contacts: Sister, healthcare surrogate Sailaja Gamboa [phone] Sister Bre Arguello [phone] Prognosis: This patient was admitted for acute pain and nausea. He has underlying recently diagnosed squamous cell carcinoma of the throat, with ongoing chemotherapy and radiation therapy with goal to treat to cure. He is at risk for ongoing complications and side effects however with continued aggressive treatments could recover from underlying malignancy per oncology. Code Status: Full Code Plan: Legal decision maker: Patient is currently capacitated and able to make his own decisions, he indicates his sister Anjali Gamboa is his designated healthcare surrogate should he become incapacitated. His other sister Anisha who is present today emailed me the copy of this document, we have scanned this to medical records. Goals: Goals aggressive, patient wishes to continue to pursue chemotherapy, XRT with the hope to cure his malignancy. He is hoping to maximize pain control and nausea control, and then return home. CODE STATUS: Full code SYMPTOMS: * --Pain-left neck painunderlying head /neck cancer. Very recently started on long-acting morphine 15 mg every 12, this past week, for significant increase in pain . prior to that pain was there but well controlled by 5 mg oxycodone a few times a day. 24 PRNS recall: --oxycodone PO 5mg x3 12/18/17 --hydromorphone 2mg x 5 12/18/17 Given that the patient was only very recently started on the feeding, and yesterday still with significant pain, and at presentation 12/17 still with significant pain very difficult to ascertain effectiveness of newly added long- acting morphine. He used multiple prns yesterday, and endorses that he was lethargic though still painful, and today appears baseline he is much more comfortable. At this time given significant prn requirements yesterday [15 mg oxycodone + 10 mg hydromorphone = > 200 oral morphine equivalents] I would recommend continuing Long acting morphine 15mg Q 8 hr scheduled. pt pain much better controlled today. (Consider decreasing back to every 12 hours dosing if significant lethargy) continue with PRN hydromorphone, oxycodone. If pain remains well controlled on long-acting morphine 15 mg every 8 hour; could consider increasing oxycodone prn dose from 5mg to 10 mg for breakthrough pain (10mg oxycodone PO= 15 mg morphine PO) If has HIGH PRN requirements in the next 1-2 days, 100 or more oral morphine equivalents, may consider increasing Long Acting Morphine to 30mg Q12. * Nauseamultifactorial. Status post chemotherapy. Also on opiates for pain. Recently started on Decadron 4 mg every 8 hr, titrate down per medical attending. has prn Zofran. Monitor requirements/effectiveness Palliative care will continue to follow during hospital course as condition evolves, to assist patient/decision-maker with understanding of medical conditions, weighing benefits/burdens of treatment options, for clarification of goals of treatment. Additionally will assist with any symptoms of palliative concern Appreciation Thank you for the opportunity to participate in the care of Alen Vaca. Attestation Attestation: To help prompt me to consider important information that might be impacting today's encounter and assessment, information from prior notes written by myself or my colleagues may have been "brought forward" into today's note. My signature on this note, however, is an attestation that I personally performed the exam, history, and/or decision-making noted today, and, unless otherwise indicated, the interactions with patient, family, and staff as well as the review of records all occurred today. I also attest that the listed assessment and stated plan reflect my best clinical judgment today based on the combination of historical information, prior notes, and today's exam/ interactions. When time spent is documented, it refers only to time spent today by the signer, or if indicated, combined time spent today by collaborating physician/nurse practitioner.
--- NOTE | 2017-12-19 10:34 | P.PN ---
Subjective Interval history: Follow-up for head and neck cancer, intractable pain. Patient is currently doing much better. Today he complains of no significant pain. He does not have nausea vomiting either. No fever or chills. Sister is at bedside. Physical Exam Vital signs: Vital Signs 12/18/17 12:29 12/18/17 15:30 12/18/17 19:47 Temperature 97.3 F L 99.3 F 99.3 F Pulse Rate 58 L 63 59 L Respiratory Rate 18 18 20 Blood Pressure 149/58 H 168/78 H 139/62 Pulse Oximetry 91 L 94 L 92 L 12/19/17 00:00 12/19/17 04:00 12/19/17 09:19 Temperature 97.8 F 98.7 F Pulse Rate 63 62 71 Respiratory Rate 20 18 Blood Pressure 143/63 H 139/65 155/72 H Pulse Oximetry 94 L 96 Intake & Output 12/18/17 12/19/17 12/19/17 18:59 06:59 18:59 Intake Total 240 / 240 240 / 240 Balance 240 / 240 240 / 240 Weight 79.6 kg Intake: Oral 240 / 240 240 / 240 Other: # Voids 3 2 Date of Last Bowel Movement 12/16/17 12/16/17 Narrative: GENERAL: Alert, oriented 3, NAD. SKIN: Warm and dry. HEAD: Normocephalic. EYES: No scleral icterus. No injection or drainage. NECK: Supple, trachea midline. No JVD or lymphadenopathy. CARDIOVASCULAR: Regular rate and rhythm without murmurs, gallops, or rubs. RESPIRATORY: Breath sounds equal bilaterally. No accessory muscle use. GASTROINTESTINAL: Abdomen soft, non-tender, nondistended. MUSCULOSKELETAL: No cyanosis, or edema. BACK: Nontender without obvious deformity. No CVA tenderness. Results - Labs CBC & Chem 7: 12/19/17 05:00 12/19/17 05:00 Laboratory Results - last 24 hr 12/19/17 12/19/17 05:00 05:00 WBC 5.6 RBC 3.73 L Hgb 11.9 L Hct 33.9 L MCV 90.8 MCH 31.9 MCHC 35.1 RDW 12.7 Plt Count 226 MPV 7.9 Neut % (Auto) 92.5 H Lymph % (Auto) 4.5 L [place] % (Auto) 2.7 Eos % (Auto) 0.1 Baso % (Auto) 0.2 Neut # (Auto) 5.2 Lymph # (Auto) 0.3 L [place] # (Auto) 0.2 Eos # (Auto) 0.0 Baso # (Auto) 0.0 WBC Differential . Differential Comment Auto diff final Sodium 139 Potassium 4.9 Chloride 101 Carbon Dioxide 30.5 Anion Gap 8 BUN 19 H Creatinine 0.66 Estimated GFR Greater than 89 Random Glucose 97 Calcium 9.3 Assessment and Plan - Plan Mr. Vaca is a pleasant 66-year-old male with a past medical history significant for neck cancer and hyperlipidemia presents the emergency department for evaluation of intractable neck pain as well as nausea. Intractable left sided neck and facial pain Nausea - Symptoms much improved. - We discussed at length regarding long acting pain medications to control pain and Dexamethasone to control nausea - If patient continues to do well, consider changing frequency of Morphine, Dexamethasone from Q8 to Q12hrs. - Patient agrees to take scheduled medications. Other narcotics PRN. - Dr. Argueta will continue to follow. Chemo/radiation while in-patient. - CT head/neck pending. Hyperlipidemia GERD - Continue Lipitor 20mg Qday. Continue PPI. Full code. Lovenox.
[2017-12-19 16:09] VITALS: BP 158/80; PULSE 61; RESP 16; TEMP 98; O2SAT 93
[2017-12-19] MEDS ORDERED: Heparin Central Flush 100 UNIT/ML 5 ML Vial IV.FLUSH PRN ×2 (17:06)
--- NOTE | 2017-12-19 19:49 | P.PNONC ---
Subjective Interval history: Resting comfortably in bed in no distress Pain is improved. Objective Vital Signs/Intake & Output: Vital Signs 12/19/17 00:00 12/19/17 04:00 12/19/17 09:19 Temperature 97.8 F 98.7 F Pulse Rate 63 62 71 Respiratory Rate 20 18 Blood Pressure 143/63 H 139/65 155/72 H Pulse Oximetry 94 L 96 12/19/17 12:01 12/19/17 16:08 Temperature 96.3 F L 98 F Pulse Rate 74 61 Respiratory Rate 18 16 Blood Pressure 154/74 H 158/80 H Pulse Oximetry 95 93 L Intake & Output 12/19/17 12/19/17 12/20/17 06:59 18:59 06:59 Intake Total 240 / 240 Balance 240 / 240 Weight 79.6 kg Intake: Oral 240 / 240 Other: # Voids 2 5 Date of Last Bowel Movement 12/16/17 12/16/17 Result Diagrams: 12/19/17 05:00 12/19/17 05:00 Laboratory Results: Laboratory Results - last 24 hr 12/19/17 12/19/17 05:00 05:00 WBC 5.6 RBC 3.73 L Hgb 11.9 L Hct 33.9 L MCV 90.8 MCH 31.9 MCHC 35.1 RDW 12.7 Plt Count 226 MPV 7.9 Neut % (Auto) 92.5 H Lymph % (Auto) 4.5 L [place] % (Auto) 2.7 Eos % (Auto) 0.1 Baso % (Auto) 0.2 Neut # (Auto) 5.2 Lymph # (Auto) 0.3 L [place] # (Auto) 0.2 Eos # (Auto) 0.0 Baso # (Auto) 0.0 WBC Differential . Differential Comment Auto diff final Sodium 139 Potassium 4.9 Chloride 101 Carbon Dioxide 30.5 Anion Gap 8 BUN 19 H Creatinine 0.66 Estimated GFR Greater than 89 Random Glucose 97 Calcium 9.3 Medications: Active Medications Generic Name Dose Route Start Last Admin Trade Name Freq PRN Reason Stop Dose Admin Aspirin 81 mg 12/18/17 09:00 12/19/17 09:46 Ecotrin PO 81 mg DAILY NO Administration Atorvastatin Calcium 20 mg 12/18/17 09:00 12/19/17 09:46 Lipitor PO 20 mg DAILY NO Administration Dexamethasone 4 mg 12/18/17 15:00 09/21/18 16:11 Decadron PO 4 mg Q8HR NO Administration Enoxaparin Sodium 40 mg 12/18/17 03:00 12/19/17 06:32 Lovenox Inj SQ Not Given Q24H NO Hydromorphone HCl 2 mg 12/18/17 02:46 12/18/17 23:30 Dilaudid Pf Inj IV.PUSH 2 mg Q4H PRN Administration breakthrough pain Sodium Chloride 1,000 mls @ 0 mls/hr 12/17/17 21:30 12/17/17 22:45 Ns Inj IV.SIG Infused BOLUS NO Infusion Wide Open Morphine Sulfate 15 mg 12/18/17 14:00 12/19/17 16:10 Oramorph Sr PO 15 mg Q8HR NO Administration Ondansetron HCl 4 mg 12/18/17 02:49 12/18/17 19:53 Zofran Inj IV.PUSH 4 mg Q6H PRN Administration NAUSEA OR VOMITING Oxycodone HCl 5 mg 12/18/17 02:48 12/18/17 19:54 Roxicodone PO 5 mg Q4HR PRN Administration PAIN 1-10 Pantoprazole Sodium 40 mg 12/18/17 09:00 12/19/17 09:46 Protonix PO 40 mg DAILY NO Administration Senna/Docusate Sodium 1 tab 12/18/17 09:00 12/19/17 09:46 Tati-Colace PO 1 tab BID NO Administration Objective Remarks: GENERAL: Well-nourished, well-developed patient. SKIN: Warm and dry. HEAD: Normocephalic. EYES: No scleral icterus. No injection or drainage. NECK: left sided LAD from malignancy RESPIRATORY: No respiratory distress GASTROINTESTINAL: Abdomen soft, non-tender, nondistended. EXTREMITIES: No cyanosis, or edema. MUSCULOSKELETAL: Adequate muscle tone. NEUROLOGICAL: No obvious focal deficit. Awake, alert, and oriented x3. PSYCHIATRIC: Appropriate mood and affect; insight and judgment normal. Assessment/Plan - Plan 1. Intractable pain. Improved s/p palliative care consult. Awaiting imaging studies 2. Head and neck cancer: continue concurrent chemotherapy and radiation therapy. Follow up in clinic on Friday.
--- NOTE | 2017-12-19 20:49 | CT ---
EXAM DATE: 12/19/2017 8:27 PM EDT AGE/SEX: 66 years / Male INDICATIONS: Head and neck pain. CLINICAL DATA: This is the patient's initial encounter. Patient reports that signs and symptoms have been present for 1 day and indicates a pain score of Nonresponsive. MEDICAL/SURGICAL HISTORY: . Neck cancer. . [place]. RADIATION DOSE: 13.43 CTDI (mGy) COMPARISON: [facility], CT SOFT TISSUE NECK W AND W/O CONTRAST, 10/28/2017. . TECHNIQUE: Helical acquisition was performed using a multirow detector CT scanner during the adminis tration of 65 ml Omnipaque 350 (iohexol) nonionic water-soluble contrast as a single exam dose. Usi ng automated exposure control and adjustment of the mA and/or kV according to patient size, radiation dose was kept as low as reasonably achievable to obtain optimal diagnostic quality images. DICOM fo rmat image data is available electronically for review and comparison. FINDINGS: There is a partially necrotic left sided neck mass measuring up to 5.1 cm in AP diameter and 3 cm in transverse diameter above the carotid bifurcation along the inner margin of the sternocleidomastoid m uscle and extending into the parapharyngeal space medially. The mass extends into the left supraglott ic space where it measures about 1.6 cm AP diameter and has increased in size from October 28 at which t argenis it measured about 1.3 cm in diameter. There is also some effacement of the left vallecula and enl argement of the left side of the epiglottis. The left internal jugular vein is occluded at the inferi or aspect of the mass, and probably thrombosed. Infraglottic airway is intact.. CONCLUSION: 1. Enlarging left-sided hypopharyngeal and left supraglottic mass with enlarging partially necrotic adenopathy in the left neck as above. 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 Electronically signed by: Ronnie Larsen MD 12/19/2017 8:48 PM EDT
--- NOTE | 2017-12-19 20:50 | CT ---
EXAM DATE: 12/19/2017 8:24 PM EDT AGE/SEX: 66 years / Male INDICATIONS: Pain in head and neck. CLINICAL DATA: This is the patient's initial encounter. Patient reports that signs and symptoms have been present for 1 day and indicates a pain score of 5/10. MEDICAL/SURGICAL HISTORY: . Cancer in neck. . [place]. RADIATION DOSE: 38.37 CTDI (mGy) COMPARISON: [facility], CT SINUSES W AND W/O CONTRAST, 11/13/2017. . TECHNIQUE: Axial images of the head were acquired without contrast and after intravenous administrat ion of 65 ml Omnipaque 350 (iohexol) nonionic water-soluble contrast as a single exam dose. Using automated exposure control and adjustment of the mA and/or kV according to patient size, radiation do se was kept as low as reasonably achievable to obtain optimal diagnostic quality images. DICOM forma t image data is available electronically for review and comparison. FINDINGS: Cerebrum: The ventricles are normal for age. No evidence of midline shift, mass lesion, hemorrhage or acute infarction. No extraaxial fluid collections are seen. Remote lacunar infarcts right basal g anglia. Posterior Fossa: The cerebellum and brainstem are intact. The 4th ventricle is midline. The cerebe llopontine angle is unremarkable. Extracranial: The visualized portion of the orbits is intact. Skull: The calvaria is intact. No evidence of skull fracture. Post Contrast: No abnormal areas of parenchymal or dural enhancement. No evidence of blood-brain ba rrier breakdown. CONCLUSION: 1. No acute findings. Remote lacunar infarct right basal ganglia. No evidence for metastatic disease to the brain. Electronically signed by: Ronnie Larsen MD 12/19/2017 8:49 PM EDT
== END 2017-12-19 20:25 | disposition home or self-care (01) ==
LOC: NEDA 19:04 → NEPE 19:04 → HCIN 12-18 03:40
PROVIDERS: ADMIT Hospitalist; ATTEND Hospitalist